=== PATIENT | female | born 1980 | race Two or more races ===

== ENCOUNTER 2024-03-01 17:26 | Emergency (ER) | payer OTHER ==
[~2024-03-01] VITALS: Ht 170.2 cm; Wt 79.4 kg
[2024-03-01] MEDS ORDERED: KETOROLAC TROMETHAMINE 60 MG VIAL IM STA (18:19)
[2024-03-01] MEDS ORDERED: ORPHENADRINE CITRATE 30 MG/ML AMPUL IM STA (18:20)
[2024-03-01] MEDS ORDERED: DEXAMETHASONE SODIUM PHOSPHATE 4 MG/ML VIAL IM STA (18:20)
== END 2024-03-01 19:34 | disposition home or self-care (01) ==
LOC: ER 17:28
DX: M62.830 Muscle spasm of back (principal); M43.6 Torticollis; Z88.0 Allergy status to penicillin